=== PATIENT | male | born 1935 | race Caucasian/White ===

== ENCOUNTER 2016-12-06 18:01 | Observation (INO) | payer MEDICARE, BC ==
[~2016-12-06] VITALS: Ht 185.4 cm; Wt 84.3 kg
[~2016-12-06 18:01] MED LIST: ALIVE MENS ENERGY PO; ASPIRIN EC81 MG PO; B-12 TR1000 MCG PO; B-121000 MC1 PO; BACTRIM DS1 TAB PO; CARVEDILOL6.25 MG PO; CELLCEPT500 MG PO; CEPHALEXIN250 MG PO; CIPROFLOXACN250 MG PO; CIPROFLOXACN500 MG PO; CRESTOR5 MG PO; DIFLUCAN100 MG PO; DILAUDID 2MG2 MG/TA1 PO; DILAUDID 2MG2 MG/TAB PO; FERROUS SULFAT325 MG PO; FOLIC ACID1 MG PO; GLIPIZIDE10 MG PO; JANUVIA100 MG PO; KEFLEX500 M1 PO; LISINOPRIL2.5 MG PO; METFORMIN500 M2 PO; PREDNISONE10 MG PO; PREVACID15 M1 PO; TAMSULOSIN0.4 MG PO; TOUJEO SOL300 UNIT/M SC; VITAMIN D2000 UNI1 PO
[2016-12-06 19:12] LABS: HEMATOCRIT 39.3 % (39.0-50.0); HEMOGLOBIN 12.5 g/dl (14.0-18.0); IMMATURE GRANULOCYTES 1.1 % (0.0-1.0); MEAN CELL VOLUME 81.7 fL CALC (80.0-100.0); MEAN CORPUSCULAR HGB CONC 31.8 g/L CALC (32.0-36.0); NEUT# 8.96 thou/uL (1.82-7.42); RED BLOOD COUNT 4.81 mill/uL (4.70-6.10); RED CELL DISTRI WIDTH 16.3 % (11.5-15.5)
[2016-12-06 19:34] LABS: ALBUMIN 3.7 g/dL (3.2-5.0); ALKALINE PHOSPHATASE 79 u/l (38-126); ANION GAP 17 (6-22 (CALC)); BILIRUBIN, TOTAL 0.5 mg/dL (0.0-1.4); BUN 19 mg/dL (8-23); BUN/CREATININE RATIO 20 (12-20 (CALC)); CALCIUM 9.3 mg/dL (8.4-10.2); CARBON DIOXIDE 26 mmol/l (22-30); CHLORIDE 95 mmol/l (95-108); CREATININE 0.9 mg/dL (0.7-1.3); GFR > 60 ML/MIN (>=60 (CALC)); GFR FOR AFR.AMER. > 60 ML/MIN (>=60 (CALC)); GLUCOSE 358 mg/dL (82-115); POTASSIUM 4.3 mmol/l (3.5-5.1); SGOT/AST 17 u/l (19-48); SGPT/ALT 31 u/l (11-66); SODIUM 133 mmol/l (137-146); TOTAL PROTEIN 6.8 g/dL (6.3-8.2)
[2016-12-06 19:43] LABS: MYOGLOBIN 84 ng/mL (0 - 121)
[2016-12-06 21:31] LABS: URINE BILIRUBIN - DIPSTICK NEGATIVE (NEGATIVE); URINE BLOOD DIPSTICK SMALL (NEGATIVE); URINE CLARITY CLEAR; URINE COLOR YELLOW; URINE GLUCOSE - DIPSTICK >=1000 mg/dL (NEGATIVE); URINE KETONE 15 mg/dL (NEGATIVE); URINE LEUK ESTERASE NEGATIVE (NEGATIVE); URINE NITRITE - DIPSTICK NEGATIVE (Negative); URINE PROTEIN - DIPSTICK TRACE mg/dL (NEG-TRACE); URINE UROBILINOGEN - DIPSTICK 0.2 E.U./dL (0.2)
[2016-12-06 21:39] LABS: URINE WBC 0-2 WBC/hpf (0-5)
[2016-12-06] MEDS ORDERED: GLUCOTROL10 MG PO (22:54)
[2016-12-06] MEDS ORDERED: CRESTOR5 MG PO (22:55)
[2016-12-06] MEDS ORDERED: ELIQUIS5 MG PO (22:57)
[2016-12-06 23:35] VITALS: BP 137/62
[2016-12-06 23:36] VITALS: BP 115/52
[2016-12-06 23:37] VITALS: BP 141/63
[2016-12-07 04:45] VITALS: BP 139/72
[2016-12-07 06:01] LABS: HEMATOCRIT 37.5 % (39.0-50.0); HEMOGLOBIN 12.1 g/dl (14.0-18.0); MEAN CELL VOLUME 82.1 fL CALC (80.0-100.0); MEAN CORPUSCULAR HGB 26.5 pG CALC (26.0-32.0); MEAN CORPUSCULAR HGB CONC 32.3 g/L CALC (32.0-36.0); RED BLOOD COUNT 4.57 mill/uL (4.70-6.10); RED CELL DISTRI WIDTH 16.5 % (11.5-15.5)
[2016-12-07 06:24] LABS: ANION GAP 14 (6-22 (CALC)); BUN 15 mg/dL (8-23); BUN/CREATININE RATIO 18 (12-20 (CALC)); CALCIUM 9.1 mg/dL (8.4-10.2); CARBON DIOXIDE 29 mmol/l (22-30); CHLORIDE 97 mmol/l (95-108); CREATININE 0.8 mg/dL (0.7-1.3); GFR > 60 ML/MIN (>=60 (CALC)); GFR FOR AFR.AMER. > 60 ML/MIN (>=60 (CALC)); GLUCOSE 175 mg/dL (82-115); MAGNESIUM 1.9 mg/dL (1.6-2.3); SODIUM 136 mmol/l (137-146)
[2016-12-07 08:21] VITALS: BP 133/69
== END 2016-12-07 13:52 | disposition home health service (06) ==
LOC: ENPENDDIS → ED 18:01 → ED-I 22:26 → ED 22:31 → MS2 22:32
PROVIDERS: Emergency Medicine; ADMIT Internal Medicine; ATTEND Internal Medicine
DX: R53.1 Weakness (principal); I10 Essential (primary) hypertension; I25.10 Atherosclerotic heart disease of native coronary artery without angina pectoris; E11.65 Type 2 diabetes mellitus with hyperglycemia; G31.84 Mild cognitive impairment of uncertain or unknown etiology; G70.00 Myasthenia gravis without (acute) exacerbation; I48.0 Paroxysmal atrial fibrillation; I25.2 Old myocardial infarction; M47.812 Spondylosis without myelopathy or radiculopathy, cervical region; Z87.440 Personal history of urinary (tract) infections; Z85.51 Personal history of malignant neoplasm of bladder; Z95.5 Presence of coronary angioplasty implant and graft; Z79.52 Long term (current) use of systemic steroids; Z79.4 Long term (current) use of insulin; Z79.01 Long term (current) use of anticoagulants; Z79.899 Other long term (current) drug therapy